=== PATIENT | male | born 1970 | race Caucasian/White ===

== ENCOUNTER 2017-11-16 22:26 | Emergency (ER) | payer OTHER ==
[~2017-11-16] VITALS: Ht 182.9 cm; Wt 104.3 kg
[~2017-11-16 22:26] MED LIST: CEPH500; CEPH500 PO; DOXY100 PO; EXEDRIN; HYDACE10B PO; HYDACE5 PO; Inderal40 MG; META800 PO; SIMV10 PO; THERAFLU
[2018-06-30] MEDS ORDERED: LISI5 PO (12:27)
[2018-06-30] MEDS ORDERED: ROSU10TA PO (12:28)
== END 2017-11-17 03:15 | disposition home or self-care (01) ==
LOC: ER 22:26
DX: C06.9 Malignant neoplasm of mouth, unspecified (principal); R51 Headache; C96.9 Malignant neoplasm of lymphoid, hematopoietic and related tissue, unspecified; Z87.891 Personal history of nicotine dependence
CPT/HCPCS: 96361; 96374; 96375; 99284; J1170; J2405; J7030

== ENCOUNTER 2017-12-06 00:19 | Day surgery (SDC) | payer OTHER, SELFPAY ==
[2017-12-06 10:36] LABS: BASOPHILS ABSOLUTE AUTO 0.03 K/mm3 (0.00-0.23); BASOPHILS PERCENT AUTO 0 % (0-2); EOSINOPHILS ABSOLUTE AUTO 0.02 K/mm3 (0.00-0.68); EOSINOPHILS PERCENT AUTO 0 % (0-6); Hematocrit 33.5 % (37.0-53.0); Hemoglobin 11.1 g/dL (13.5-17.5); IMMATURE GRAN ABSOLUTE AUTO 0.03 K/mm3 (0.00-0.10); IMMATURE GRAN PERCENT AUTO 0 % (0-1); LYMPHOCYTES ABSOLUTE AUTO 0.66 K/mm3 (0.84-5.20); LYMPHOCYTES PERCENT AUTO 7 % (21-46); MONOCYTES ABSOLUTE AUTO 0.89 K/mm3 (0.16-1.47); MONOCYTES PERCENT AUTO 9 % (4-13); Mean Corpuscular HGB 32.3 pg (26.0-34.0); Mean Corpuscular HGB Conc 33.1 g/dL (31.5-36.5); Mean Corpuscular Volume 97 fL (80-100); Mean Platelet Volume 9.5 fL (9.1-12.4); NEUTROPHILS ABSOLUTE AUTO 8.31 K/mm3 (1.96-9.15); NEUTROPHILS PERCENT AUTO 84 % (41-73); Platelet Count 311 K/mm3 (150-400); RDW Coefficient Variation 13.2 % (11.7-14.2); RDW Standard Deviation 44.7 fL (35.1-46.3); Red Blood Cell Count 3.44 M/mm3 (4.30-5.90); White Blood Cell Count 9.94 K/mm3 (4.00-11.30)
[2017-12-06 11:20] LABS: Alanine Aminotransfer (ALT/SGP 20 U/L (12-78); Albumin, Blood 3.3 g/dL (3.4-5.0); Albumin/Globulin Ratio 0.8 (0.8-1.8); Alk Phos 123 U/L (50-136); Anion Gap 6 mmol/L (6-16); Aspartate Aminotrans (AST/SGOT 15 U/L (12-37); Bilirubin, Total 0.2 mg/dL (0.1-1.0); Blood Urea Nitrogen 21 mg/dL (8-24); Bun/Creatinine Ratio 22.5 (12.0-20.0); CO2, Blood 28 mmol/L (21-32); Calcium, Blood 9.5 mg/dL (8.5-10.1); Chloride, Blood 106 mmol/L (98-108); Creatinine, Blood 0.93 mg/dL (0.60-1.20); Glomerular Filtration Rate >60 (60-); Glucose, Blood 88 mg/dL (70-99); Potassium, Blood 4.2 mmol/L (3.5-5.5); Sodium, Blood 140 mmol/L (136-145); Total Protein, Blood 7.3 g/dL (6.4-8.2)
== END 2017-12-06 10:50 | disposition home or self-care (01) ==
LOC: ATC 00:19
PROVIDERS: Internal Medicine Infectious Disease
DX: M27.2 Inflammatory conditions of jaws (principal); I10 Essential (primary) hypertension; Z87.891 Personal history of nicotine dependence
CPT/HCPCS: 36592; 80053; 85025

== ENCOUNTER 2017-12-10 10:07 | Emergency (ER) | payer OTHER, SELFPAY ==
[~2017-12-10] VITALS: Ht 185.4 cm; Wt 96.6 kg
[2017-12-10] MEDS ORDERED: Oxycodone HCl5 M1 (10:36)
[2017-12-10] MEDS ORDERED: ACET120S PR (10:36)
[2017-12-10] MEDS ORDERED: CEPH250A IV (10:36)
[2017-12-10] MEDS ORDERED: Rocephin 1g1 G/50 ML IV (10:38)
[2017-12-10 11:51] LABS: BASOPHILS ABSOLUTE AUTO 0.04 K/mm3 (0.00-0.23); BASOPHILS PERCENT AUTO 0 % (0-2); EOSINOPHILS ABSOLUTE AUTO 0.08 K/mm3 (0.00-0.68); EOSINOPHILS PERCENT AUTO 1 % (0-6); Hemoglobin 11.6 g/dL (13.5-17.5); IMMATURE GRAN ABSOLUTE AUTO 0.01 K/mm3 (0.00-0.10); IMMATURE GRAN PERCENT AUTO 0 % (0-1); LYMPHOCYTES ABSOLUTE AUTO 0.63 K/mm3 (0.84-5.20); LYMPHOCYTES PERCENT AUTO 7 % (21-46); MONOCYTES ABSOLUTE AUTO 0.85 K/mm3 (0.16-1.47); MONOCYTES PERCENT AUTO 9 % (4-13); Mean Corpuscular HGB Conc 33.1 g/dL (31.5-36.5); Mean Corpuscular Volume 97 fL (80-100); Mean Platelet Volume 9.5 fL (9.1-12.4); NEUTROPHILS ABSOLUTE AUTO 7.52 K/mm3 (1.96-9.15); NEUTROPHILS PERCENT AUTO 82 % (41-73); Platelet Count 284 K/mm3 (150-400); RDW Coefficient Variation 13.8 % (11.7-14.2); RDW Standard Deviation 47.1 fL (35.1-46.3); Red Blood Cell Count 3.62 M/mm3 (4.30-5.90); White Blood Cell Count 9.13 K/mm3 (4.00-11.30)
[2017-12-10 12:03] LABS: Anion Gap 7 mmol/L (6-16); Blood Urea Nitrogen 16 mg/dL (8-24); CO2, Blood 27 mmol/L (21-32); Calcium, Blood 9.3 mg/dL (8.5-10.1); Chloride, Blood 107 mmol/L (98-108); Creatinine, Blood 0.84 mg/dL (0.60-1.20); Glomerular Filtration Rate >60 (60-); Glucose, Blood 91 mg/dL (70-99); Potassium, Blood 3.9 mmol/L (3.5-5.5); Sodium, Blood 141 mmol/L (136-145)
== END 2017-12-10 13:48 | disposition home or self-care (01) ==
LOC: ER 10:07
PROVIDERS: Emergency Medicine
DX: G89.18 Other acute postprocedural pain (principal); Z79.899 Other long term (current) drug therapy; Z79.2 Long term (current) use of antibiotics
CPT/HCPCS: 70491; 80048; 85025; 96360; 99284; J7030; Q9967

== ENCOUNTER 2017-12-12 00:29 | Day surgery (SDC) | payer OTHER, SELFPAY ==
[~2017-12-12 00:29] MED LIST changes: +ACET120S PR; +CEPH250A IV; +Oxycodone HCl5 M1; +Rocephin 1g1 G/50 ML IV
[2017-12-12 11:23] LABS: BASOPHILS ABSOLUTE AUTO 0.03 K/mm3 (0.00-0.23); BASOPHILS PERCENT AUTO 0 % (0-2); Hematocrit 33.9 % (37.0-53.0); IMMATURE GRAN ABSOLUTE AUTO 0.02 K/mm3 (0.00-0.10); IMMATURE GRAN PERCENT AUTO 0 % (0-1); LYMPHOCYTES ABSOLUTE AUTO 0.59 K/mm3 (0.84-5.20); LYMPHOCYTES PERCENT AUTO 7 % (21-46); Mean Corpuscular Volume 97 fL (80-100); Red Blood Cell Count 3.51 M/mm3 (4.30-5.90)
[2017-12-12 11:30] LABS: EOSINOPHILS ABSOLUTE AUTO 0.19 K/mm3 (0.00-0.68); EOSINOPHILS PERCENT AUTO 2 % (0-6); Hemoglobin 11.3 g/dL (13.5-17.5); MONOCYTES ABSOLUTE AUTO 0.71 K/mm3 (0.16-1.47); MONOCYTES PERCENT AUTO 9 % (4-13); Mean Corpuscular HGB 32.2 pg (26.0-34.0); Mean Corpuscular HGB Conc 33.3 g/dL (31.5-36.5); Mean Platelet Volume 10.2 fL (9.1-12.4); NEUTROPHILS PERCENT AUTO 82 % (41-73); Platelet Count 231 K/mm3 (150-400); RDW Coefficient Variation 14.1 % (11.7-14.2); RDW Standard Deviation 48.7 fL (35.1-46.3); White Blood Cell Count 8.34 K/mm3 (4.00-11.30)
[2017-12-12 11:42] LABS: Alanine Aminotransfer (ALT/SGP 20 U/L (12-78); Albumin, Blood 3.3 g/dL (3.4-5.0); Albumin/Globulin Ratio 0.8 (0.8-1.8); Alk Phos 109 U/L (50-136); Anion Gap 9 mmol/L (6-16); Aspartate Aminotrans (AST/SGOT 19 U/L (12-37); Bilirubin, Total 0.2 mg/dL (0.1-1.0); Blood Urea Nitrogen 13 mg/dL (8-24); Bun/Creatinine Ratio 16.1 (12.0-20.0); CO2, Blood 26 mmol/L (21-32); Calcium, Blood 8.9 mg/dL (8.5-10.1); Chloride, Blood 106 mmol/L (98-108); Creatinine, Blood 0.81 mg/dL (0.60-1.20); Glomerular Filtration Rate >60 (60-); Glucose, Blood 104 mg/dL (70-99); Potassium, Blood 3.9 mmol/L (3.5-5.5); Sodium, Blood 141 mmol/L (136-145); Total Protein, Blood 7.3 g/dL (6.4-8.2)
== END 2017-12-12 11:00 | disposition home or self-care (01) ==
LOC: ATC 00:29
DX: M27.2 Inflammatory conditions of jaws (principal); Z85.810 Personal history of malignant neoplasm of tongue; I10 Essential (primary) hypertension
CPT/HCPCS: 36592; 80053; 85025

== ENCOUNTER 2017-12-17 00:24 | Day surgery (SDC) | payer OTHER, SELFPAY | END 2017-12-17 23:05 | disposition home or self-care (01) | LOC: WOUND 00:24 | DX: Z48.00 Encounter for change or removal of nonsurgical wound dressing (principal); C01 Malignant neoplasm of base of tongue; C77.0 Secondary and unspecified malignant neoplasm of lymph nodes of head, face and neck; R22.1 Localized swelling, mass and lump, neck; I10 Essential (primary) hypertension; G47.30 Sleep apnea, unspecified; Z87.891 Personal history of nicotine dependence | CPT/HCPCS: G0463 ==

== ENCOUNTER 2017-12-20 00:26 | Day surgery (SDC) | payer OTHER, SELFPAY ==
[2017-12-20 12:35] LABS: Hematocrit 33.9 % (37.0-53.0); Hemoglobin 11.3 g/dL (13.5-17.5); Mean Corpuscular HGB 33.1 pg (26.0-34.0); Mean Corpuscular HGB Conc 33.3 g/dL (31.5-36.5); Mean Corpuscular Volume 99 fL (80-100); Mean Platelet Volume 9.9 fL (9.1-12.4); Platelet Count 334 K/mm3 (150-400); RDW Coefficient Variation 15.2 % (11.7-14.2); Red Blood Cell Count 3.41 M/mm3 (4.30-5.90); White Blood Cell Count 7.21 K/mm3 (4.00-11.30)
[2017-12-20 13:15] LABS: BASOPHILS PERCENT MAN 0 % (0-2); EOSINOPHILS PERCENT MAN 0 % (0-6); LYMPHOCYTES ABSOLUTE MAN 0.21 K/mm3 (0.84-5.20); LYMPHOCYTES PERCENT MAN 3 % (21-46); MONOCYTES ABSOLUTE MAN 0.28 K/mm3 (0.16-1.47); MONOCYTES PERCENT MAN 4 % (4-13); SEG NEUTROPHILS PERCENT MAN 93 % (41-73); TOTAL CELLS COUNTED 100
[2017-12-20 13:27] LABS: Alanine Aminotransfer (ALT/SGP 21 U/L (12-78); Albumin, Blood 3.3 g/dL (3.4-5.0); Alk Phos 104 U/L (50-136); Anion Gap 6 mmol/L (6-16); Aspartate Aminotrans (AST/SGOT 11 U/L (12-37); Bilirubin, Total 0.1 mg/dL (0.1-1.0); Blood Urea Nitrogen 14 mg/dL (8-24); Bun/Creatinine Ratio 20.9 (12.0-20.0); CO2, Blood 31 mmol/L (21-32); Chloride, Blood 107 mmol/L (98-108); Creatinine, Blood 0.67 mg/dL (0.60-1.20); Globulin, Blood 3.4 g/dL (2.2-4.0); Glomerular Filtration Rate >60 (60-); Glucose, Blood 120 mg/dL (70-99); Potassium, Blood 3.8 mmol/L (3.5-5.5); Sodium, Blood 144 mmol/L (136-145); Total Protein, Blood 6.7 g/dL (6.4-8.2)
== END 2017-12-20 11:55 | disposition home or self-care (01) ==
LOC: ATC 00:26
PROVIDERS: Internal Medicine Infectious Disease
DX: M27.2 Inflammatory conditions of jaws (principal); I10 Essential (primary) hypertension; Z87.891 Personal history of nicotine dependence; Z85.810 Personal history of malignant neoplasm of tongue
CPT/HCPCS: 36592; 80053; 85025

== ENCOUNTER 2017-12-27 00:42 | Day surgery (SDC) | payer OTHER, SELFPAY ==
[2017-12-27] MEDS ORDERED: METR500 PO (11:43)
[2017-12-27] MEDS ORDERED: Periogard473 ML MM (11:44)
[2017-12-27 11:56] LABS: BASOPHILS ABSOLUTE AUTO 0.04 K/mm3 (0.00-0.23); BASOPHILS PERCENT AUTO 1 % (0-2); EOSINOPHILS ABSOLUTE AUTO 0.06 K/mm3 (0.00-0.68); EOSINOPHILS PERCENT AUTO 1 % (0-6); Hematocrit 38.9 % (37.0-53.0); IMMATURE GRAN ABSOLUTE AUTO 0.01 K/mm3 (0.00-0.10); IMMATURE GRAN PERCENT AUTO 0 % (0-1); LYMPHOCYTES ABSOLUTE AUTO 0.64 K/mm3 (0.84-5.20); LYMPHOCYTES PERCENT AUTO 12 % (21-46); MONOCYTES ABSOLUTE AUTO 0.59 K/mm3 (0.16-1.47); MONOCYTES PERCENT AUTO 11 % (4-13); Mean Corpuscular HGB 33.6 pg (26.0-34.0); Mean Corpuscular HGB Conc 33.4 g/dL (31.5-36.5); Mean Corpuscular Volume 101 fL (80-100); Mean Platelet Volume 9.7 fL (9.1-12.4); NEUTROPHILS ABSOLUTE AUTO 4.15 K/mm3 (1.96-9.15); NEUTROPHILS PERCENT AUTO 76 % (41-73); Platelet Count 372 K/mm3 (150-400); RDW Coefficient Variation 15.7 % (11.7-14.2); RDW Standard Deviation 58.4 fL (35.1-46.3); Red Blood Cell Count 3.87 M/mm3 (4.30-5.90); White Blood Cell Count 5.49 K/mm3 (4.00-11.30)
[2017-12-27 12:19] LABS: Alanine Aminotransfer (ALT/SGP 19 U/L (12-78); Albumin, Blood 3.6 g/dL (3.4-5.0); Albumin/Globulin Ratio 1.1 (0.8-1.8); Alk Phos 86 U/L (50-136); Anion Gap 7 mmol/L (6-16); Aspartate Aminotrans (AST/SGOT 14 U/L (12-37); Bilirubin, Total 0.2 mg/dL (0.1-1.0); Blood Urea Nitrogen 16 mg/dL (8-24); Bun/Creatinine Ratio 18.8 (12.0-20.0); CO2, Blood 28 mmol/L (21-32); Chloride, Blood 109 mmol/L (98-108); Creatinine, Blood 0.85 mg/dL (0.60-1.20); Globulin, Blood 3.2 g/dL (2.2-4.0); Glomerular Filtration Rate >60 (60-); Glucose, Blood 104 mg/dL (70-99); Potassium, Blood 4.3 mmol/L (3.5-5.5); Sodium, Blood 144 mmol/L (136-145); Total Protein, Blood 6.8 g/dL (6.4-8.2)
== END 2017-12-27 11:35 | disposition home or self-care (01) ==
LOC: ATC 00:42
PROVIDERS: Internal Medicine Infectious Disease
DX: M27.2 Inflammatory conditions of jaws (principal)
CPT/HCPCS: 36592; 80053; 85025

== ENCOUNTER 2018-01-02 00:26 | Day surgery (SDC) | payer OTHER, SELFPAY ==
[~2018-01-02 00:26] MED LIST changes: +METR500 PO; +Periogard473 ML MM
== END 2018-01-02 11:25 | disposition home or self-care (01) ==
LOC: ATC 00:26
DX: M27.2 Inflammatory conditions of jaws (principal); I10 Essential (primary) hypertension

== ENCOUNTER → 2018-08-31 | Outpatient (CLI) | payer OTHER ==
[~2018-08-31] MED LIST changes: +LISI5 PO; +ROSU10TA PO
== END | disposition home or self-care (01) ==
LOC: LAB 11:24 → LAB SHORT 11:24 → LAB FUT 08-29 10:25
DX: K51.90 Ulcerative colitis, unspecified, without complications (principal)
CPT/HCPCS: 83993

== ENCOUNTER 2019-06-05 11:26 | Observation (INO) | payer OTHER ==
[~2019-06-05] VITALS: Ht 177.8 cm; Wt 99.8 kg
[~2019-06-05 11:26] MED LIST changes: +Crestor20 MG PO; -LISI5 PO; +Prinivil10 MG PO; -ROSU10TA PO
[2019-06-05 12:32] LABS: BASOPHILS ABSOLUTE AUTO 0.08 K/mm3 (0.00-0.23); BASOPHILS PERCENT AUTO 1 % (0-2); EOSINOPHILS ABSOLUTE AUTO 0.21 K/mm3 (0.00-0.68); EOSINOPHILS PERCENT AUTO 2 % (0-6); Hemoglobin 14.1 g/dL (13.5-17.5); IMMATURE GRAN ABSOLUTE AUTO 0.14 K/mm3 (0.00-0.10); IMMATURE GRAN PERCENT AUTO 1 % (0-1); LYMPHOCYTES ABSOLUTE AUTO 1.25 K/mm3 (0.84-5.20); LYMPHOCYTES PERCENT AUTO 13 % (21-46); MONOCYTES ABSOLUTE AUTO 0.98 K/mm3 (0.16-1.47); MONOCYTES PERCENT AUTO 10 % (4-13); Mean Corpuscular HGB Conc 33.6 g/dL (31.5-36.5); Mean Corpuscular Volume 104 fL (80-100); Mean Platelet Volume 10.4 fL (9.1-12.4); NEUTROPHILS ABSOLUTE AUTO 7.37 K/mm3 (1.96-9.15); NEUTROPHILS PERCENT AUTO 73 % (41-73); Platelet Count 219 K/mm3 (150-400); RDW Coefficient Variation 12.3 % (11.7-14.2); RDW Standard Deviation 47.6 fL (35.1-46.3); Red Blood Cell Count 4.03 M/mm3 (4.30-5.90); White Blood Cell Count 10.03 K/mm3 (4.00-11.30)
[2019-06-05 12:53] LABS: Alanine Aminotransfer (ALT/SGP 68 U/L (12-78); Albumin, Blood 3.7 g/dL (3.4-5.0); Albumin/Globulin Ratio 1.1 (0.8-1.8); Alk Phos 125 U/L (50-136); Anion Gap 8 mmol/L (6-16); Aspartate Aminotrans (AST/SGOT 78 U/L (12-37); Bilirubin, Total 0.6 mg/dL (0.1-1.0); Blood Urea Nitrogen 20 mg/dL (8-24); CO2, Blood 25 mmol/L (21-32); Calcium, Blood 9.5 mg/dL (8.5-10.1); Chloride, Blood 104 mmol/L (98-108); Creatinine, Blood 1.05 mg/dL (0.60-1.20); Globulin, Blood 3.4 g/dL (2.2-4.0); Glomerular Filtration Rate >60 (60-); Glucose, Blood 118 mg/dL (70-99); Potassium, Blood 4.2 mmol/L (3.5-5.5); Sodium, Blood 137 mmol/L (136-145); Total Protein, Blood 7.1 g/dL (6.4-8.2)
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
--- NOTE | 2019-06-05 19:10 | NUR ---
po oxy given pt eating dinner called dr suleman herrmann his home meds and bowel care meds pt stated he started getting a leg cramp
--- NOTE | 2019-06-05 19:55 | NUR ---
Pt states he drinks half a case per day. Dr. James notified. Consult for hospitalist requested. [facility] notified by RN, will come to see patient.
[2019-06-06 04:13] LABS: Hematocrit 37.1 % (37.0-53.0); Hemoglobin 12.2 g/dL (13.5-17.5); Mean Corpuscular HGB 34.4 pg (26.0-34.0); Mean Corpuscular HGB Conc 32.9 g/dL (31.5-36.5); Mean Corpuscular Volume 105 fL (80-100); Mean Platelet Volume 10.2 fL (9.1-12.4); Platelet Count 169 K/mm3 (150-400); RDW Coefficient Variation 12.2 % (11.7-14.2); RDW Standard Deviation 47.8 fL (35.1-46.3); Red Blood Cell Count 3.55 M/mm3 (4.30-5.90); White Blood Cell Count 11.48 K/mm3 (4.00-11.30)
--- NOTE | 2019-06-06 05:07 | NUR ---
Patient A/Ox4. VSS. Ambulating in hallway with FWW. 5ml Drained from Hemovacc. Patient complaint of chest tightness. Dr cuevas notified and consulted hospitalist. EKG and labs ordered to trend troponin. CMS intact.
--- NOTE | 2019-06-06 16:04 | NUR ---
PT REPORTS DOPPLER WAS REQUIRED TO FIND PULSE ON RLE WHEN HE CAME TO THE ER. RLE REMAINS COOL AND PULSES WEAKER THAN LLE. DR. SIU NOTIFIED. WILL CONTINUE TO MONITOR AND MAINTAIN BEDREST UNTIL RECOMMENDATIONS COME FROM TRAUMA SURGEON.
--- NOTE | 2019-06-06 19:30 | NUR ---
SHIFT SUMMARY PAIN HAS BEEN MANAGED WITH PO AND IV PAIN MEDICATION THIS SHIFT. PT BECOMES VERY PAINFUL WITH MOVEMENT. PT TOLERATING PO WELL. CIWA SCORE REMAINS LOW. REPORT GIVEN TO TORI LE.
--- NOTE | 2019-06-07 05:05 | NUR ---
SHIFT SUMMARY PT RESTED WELL T/O NIGHT. AAOX4. NEGATIVE CIWA. DISCOMFORT CONTROLLED WITH 10MG ROXICODONE X2 THIS SHIFT + 1MG IV DILAUDID X1 FOR BREAKTHROUGH, NO NAUSEA/EMESIS. PT REPOSITIONS SELF IN BED, CONTINUE TO ENCOURAGE. X1 BAG IVF GIVEN PER ORDERS THIS SHIFT. GOOD PO INTAKE + OUTPUT. PT RESTING WELL AT THIS TIME, CALL LIGHT IN REACH.
--- NOTE | 2019-06-07 08:11 | NUR ---
DURING ASSESSMENT EDUCATED PATIENT ON USING SLING. PATIENT REFUSED TO WEAR SLING AT THIS TIME. STATES DISCOMFORT WHEN USING. WILL CONTINUE TO ENCOURAGE SLING USE PATIENT BECOMES MORE MOBILE
--- NOTE | 2019-06-07 15:18 | NUR ---
WHILE TRANSFERING PT TO BED FROM CHAIR, PT FELT A "POP" IN HIS LEFT INTERIOR HIP. REASSESSED PATIENT AND NO CHANGES FROM PREVIOUS NOTED. DR. SIU NOTIFIED, PLAN IS TO CONTINUE OBSERVING FOR ANY CHANGES. PT CURRENTLY RESTING IN BED. LEG IS ELEVATED AND PATIENT STATES NO PAIN WHEN NOT MOVING. ICE PACK GIVEN TO PATIENT FOR LEG.
--- NOTE | 2019-06-07 16:24 | NUR ---
SHIFT SUMMARY PATIENT ALERT AND ORIENTED DURING SHIFT, VSS. PATIENT UP TO CHAIR WITH 2 MOD ASSIST, CESAR-WALKER AND GAITBELT. VERY PAINFUL WITH STANDING ON TURNING. PT MEDICATED PER EMAR WITH ROXICODONE X2 AND DILAUDID X2 FOR BREAKTHROUGH PAIN. PATIENT TOLERATING WELL. NO BM AND BOWEL CARE STARTED. PLAN IS TO DISCHARGE TO SNF ONCE DISCHARGE ORDERS PLACED. PATIENT WEARING SLING.
[2019-06-08 04:57] LABS: BASOPHILS ABSOLUTE AUTO 0.02 K/mm3 (0.00-0.23); BASOPHILS PERCENT AUTO 0 % (0-2); EOSINOPHILS ABSOLUTE AUTO 0.11 K/mm3 (0.00-0.68); EOSINOPHILS PERCENT AUTO 1 % (0-6); Hemoglobin 10.4 g/dL (13.5-17.5); IMMATURE GRAN ABSOLUTE AUTO 0.05 K/mm3 (0.00-0.10); IMMATURE GRAN PERCENT AUTO 0 % (0-1); LYMPHOCYTES ABSOLUTE AUTO 0.75 K/mm3 (0.84-5.20); LYMPHOCYTES PERCENT AUTO 6 % (21-46); MONOCYTES ABSOLUTE AUTO 1.84 K/mm3 (0.16-1.47); MONOCYTES PERCENT AUTO 14 % (4-13); Mean Corpuscular HGB 34.6 pg (26.0-34.0); Mean Corpuscular HGB Conc 33.5 g/dL (31.5-36.5); Mean Corpuscular Volume 103 fL (80-100); Mean Platelet Volume 10.1 fL (9.1-12.4); NEUTROPHILS ABSOLUTE AUTO 10.85 K/mm3 (1.96-9.15); NEUTROPHILS PERCENT AUTO 80 % (41-73); Platelet Count 174 K/mm3 (150-400); RDW Coefficient Variation 11.9 % (11.7-14.2); RDW Standard Deviation 45.4 fL (35.1-46.3); Red Blood Cell Count 3.01 M/mm3 (4.30-5.90); White Blood Cell Count 13.62 K/mm3 (4.00-11.30)
--- NOTE | 2019-06-08 05:29 | NUR ---
SHIFT SUMMARY LYING IN SEMI FOWLERS WITH EYES CLOSED AND SO AT BEDSIDE IN CHAIR ASLEEP. REPOSITIONED FOR COMFORT PRN. PAIN MANAGED WITH PRN MEDS PER MD ORDERS. ABLE TO USE URINAL FOR VOIDING PRN. DENIES FURTHER NEEDS AT THIS TIME. SAFETY MEASURES IN PLACE. WILL GIVE HAND OFF TO ONCOMING SHIFT USING SBAR.
[2019-06-08 05:30] LABS: Alanine Aminotransfer (ALT/SGP 38 U/L (12-78); Albumin, Blood 2.7 g/dL (3.4-5.0); Albumin/Globulin Ratio 0.7 (0.8-1.8); Alk Phos 87 U/L (50-136); Anion Gap 6 mmol/L (6-16); Aspartate Aminotrans (AST/SGOT 45 U/L (12-37); Blood Urea Nitrogen 14 mg/dL (8-24); Bun/Creatinine Ratio 14.8 (12.0-20.0); CO2, Blood 29 mmol/L (21-32); Calcium, Blood 8.5 mg/dL (8.5-10.1); Chloride, Blood 97 mmol/L (98-108); Creatinine, Blood 0.95 mg/dL (0.60-1.20); Globulin, Blood 3.7 g/dL (2.2-4.0); Glomerular Filtration Rate >60 (60-); Glucose, Blood 102 mg/dL (70-99); Potassium, Blood 4.2 mmol/L (3.5-5.5); Sodium, Blood 132 mmol/L (136-145); Total Protein, Blood 6.4 g/dL (6.4-8.2)
--- NOTE | 2019-06-08 15:12 | NUR ---
DR GAVIRIA HERE RECENTLY TO SEE PT. DISCUSSED PAIN MGMT AND BOWEL CARE.
--- NOTE | 2019-06-08 18:29 | NUR ---
SHIFT SUMMARY PT EATING AND DRINKING. PT REPORTS DRINKING ENSURES. PT BEEN ASSISTED WITH ADL'S PRN. PT WAS UP TO BS WITH NO SUCCESS FOR BM. PT MED WITH BOWEL CARE. PT BEEN ENC TO HAVE BOWEL CARE EARLIER IN THE DAY, WHICH HE DID HAVE SOME BUT ALSO REFUSED SOME UNTIL LATER THIS AFTERNOON. PT USING CALL LIGHT APPR. PT BEEN MED FOR PAIN PRN. JUNI FIERRO'S TO SEE PT.
--- NOTE | 2019-06-08 19:58 | NUR ---
ASSUMED CARE ASSUMED CARE OF PT APPROX. 1900. PT A&OX4. PT VITAL SIGNS STABLE. ASSESSMENT COMPLETED. PT REPORTS PAIN TOLERABLE AT THIS TIME. SWELLING NOTED IN RIGHT ARM WHICH PATIENT REPORTS UNCHANGED. PT HAS BRUISING ON RIGHT HIP, AND GROIN/ LISSETH AREA. PT REPORTS THIS TO BE FROM FALL. PT ABDOMEN DISTENDED AND FIRM. PT REPORTS FLATULENCE. PT DENIES AND N/V. BED IN LOW POSITION, CALL LIGHT IN REACH AND PT DENIES ANY NEEDS. WILL CONTINUE TO MONITOR
--- NOTE | 2019-06-09 01:44 | NUR ---
ASSUMED CARE OF PT. MANAGER COMMERCIAL x2 ASSISTED PT TO BSC. PT WAS PAINFUL WITH MOVEMENT BUT SETTLES QUICKLY.
--- NOTE | 2019-06-09 02:05 | NUR ---
PT WAS ABLE TO HAVE MED SIZE HARD BM. ASSISTED BACK TO BED WITH 2 MAX ASSIST USING GAIT BELT AND CESAR WALKER. PT WAS PAINFUL BUT STATES THAT ITS GETTING EASIER EVERY TIME. REPOSITONED IN BED FOR COMFORT. MEDICATED FOR PAIN WITH 2 OXYCODONE, AND GAVE PRUNE JUICE PER REQUEST. CALL LIGHT IN REACH.
[2019-06-09 05:10] LABS: BASOPHILS ABSOLUTE AUTO 0.04 K/mm3 (0.00-0.23); BASOPHILS PERCENT AUTO 0 % (0-2); EOSINOPHILS ABSOLUTE AUTO 0.04 K/mm3 (0.00-0.68); EOSINOPHILS PERCENT AUTO 0 % (0-6); Hematocrit 29.8 % (37.0-53.0); Hemoglobin 9.9 g/dL (13.5-17.5); IMMATURE GRAN PERCENT AUTO 1 % (0-1); LYMPHOCYTES ABSOLUTE AUTO 0.68 K/mm3 (0.84-5.20); LYMPHOCYTES PERCENT AUTO 4 % (21-46); MONOCYTES ABSOLUTE AUTO 2.03 K/mm3 (0.16-1.47); MONOCYTES PERCENT AUTO 13 % (4-13); Mean Corpuscular HGB 34.3 pg (26.0-34.0); Mean Corpuscular HGB Conc 33.2 g/dL (31.5-36.5); Mean Corpuscular Volume 103 fL (80-100); Mean Platelet Volume 10.1 fL (9.1-12.4); NEUTROPHILS ABSOLUTE AUTO 12.62 K/mm3 (1.96-9.15); NEUTROPHILS PERCENT AUTO 81 % (41-73); Platelet Count 203 K/mm3 (150-400); RDW Standard Deviation 45.8 fL (35.1-46.3); Red Blood Cell Count 2.89 M/mm3 (4.30-5.90); White Blood Cell Count 15.51 K/mm3 (4.00-11.30)
--- NOTE | 2019-06-09 05:36 | NUR ---
PT STATES DOING BETTER, PAIN IS MANAGEABLE WITH PO NARCOTICS. DID HAVE MED SIZE BM. IS ABLE TO STAND FOLLOWING WB RESTRICTIONS, USING MOD ASSIST WITH GAIT BELT. PLAN FOR POSSIBLE DC TO SNF TODAY.
[2019-06-09 12:59] LABS: Bilirubin, Urine Neg (Neg); Blood, Urine Neg (Neg); Glucose Qualitative, Urine Neg (Neg); Ketones, Urine Neg (Neg); Leukocyte Esterase, Urine Neg (Neg); Nitrite, Urine Neg (Neg); Protein, Urine 1+ (Neg); Specific Gravity, Urine 1.015 (1.003-1.022); Urobilinogen, Urine NORM (Normal); pH, Urine 6.5 (5.0-8.0)
[2019-06-09 13:16] LABS: Appearance, Urine Clear (Clear); Color, Urine Yellow (P-Yellow)
== END 2019-06-09 13:55 ==
LOC: ER 11:26 → SURS 11:27
PROVIDERS: Emergency Medicine; Internal Medicine; ADMIT Surgery
DX: S52.124A Nondisplaced fracture of head of right radius, initial encounter for closed fracture (principal); S32.592A Other specified fracture of left pubis, initial encounter for closed fracture; S32.19XA Other fracture of sacrum, initial encounter for closed fracture; K59.00 Constipation, unspecified; E78.5 Hyperlipidemia, unspecified; F10.20 Alcohol dependence, uncomplicated; I10 Essential (primary) hypertension; Z79.899 Other long term (current) drug therapy; W13.2XXA Fall from, out of or through roof, initial encounter; Y90.9 Presence of alcohol in blood, level not specified
CPT/HCPCS: 36415; 71260; 73080; 73630; 74177; 80053; 83690; 85025; 85027; 96365; 96366; 96374-59; 96375; 96375-59; 96376; 97110; 97162; 97530; 99285-25; G0378; J1170; J2270; J2405; J3411; J3475; J7042; Q0163; Q9967

== ENCOUNTER 2020-08-28 14:13 | Observation (INO) | payer OTHER ==
[~2020-08-28] VITALS: Ht 182.9 cm; Wt 117.7 kg
[2020-08-28 14:58] LABS: BASOPHILS ABSOLUTE AUTO 0.08 K/mm3 (0.00-0.23); BASOPHILS PERCENT AUTO 1 % (0-2); EOSINOPHILS ABSOLUTE AUTO 0.03 K/mm3 (0.00-0.68); EOSINOPHILS PERCENT AUTO 0 % (0-6); Hemoglobin 19.8 g/dL (13.5-17.5); IMMATURE GRAN ABSOLUTE AUTO 0.06 K/mm3 (0.00-0.10); IMMATURE GRAN PERCENT AUTO 0 % (0-1); LYMPHOCYTES ABSOLUTE AUTO 1.11 K/mm3 (0.84-5.20); LYMPHOCYTES PERCENT AUTO 7 % (21-46); MONOCYTES PERCENT AUTO 8 % (4-13); Mean Corpuscular HGB 33.4 pg (26.0-34.0); Mean Corpuscular Volume 98 fL (80-100); NEUTROPHILS ABSOLUTE AUTO 13.52 K/mm3 (1.96-9.15); NEUTROPHILS PERCENT AUTO 84 % (41-73); Platelet Count 259 K/mm3 (150-400); RDW Coefficient Variation 12.2 % (11.7-14.2); RDW Standard Deviation 45.2 fL (35.1-46.3); Red Blood Cell Count 5.93 M/mm3 (4.30-5.90)
[2020-08-28 15:03] LABS: Hematocrit 58.3 % (37.0-53.0)
[2020-08-28 15:22] LABS: Alanine Aminotransfer (ALT/SGP 147 U/L (12-78); Albumin, Blood 4.2 g/dL (3.4-5.0); Alk Phos 187 U/L (50-136); Anion Gap 9 mmol/L (6-16); Aspartate Aminotrans (AST/SGOT 157 U/L (12-37); Bilirubin, Total 1.4 mg/dL (0.1-1.0); Blood Urea Nitrogen 16 mg/dL (8-24); Bun/Creatinine Ratio 12.4 (12.0-20.0); CO2, Blood 30 mmol/L (21-32); Calcium, Blood 11.1 mg/dL (8.5-10.1); Chloride, Blood 96 mmol/L (98-108); Creatinine, Blood 1.29 mg/dL (0.60-1.20); Globulin, Blood 4.4 g/dL (2.2-4.0); Glomerular Filtration Rate >60 (60-); Glucose, Blood 119 mg/dL (70-99); Potassium, Blood 3.3 mmol/L (3.5-5.5); Sodium, Blood 135 mmol/L (136-145); Total Protein, Blood 8.6 g/dL (6.4-8.2); Troponin I <0.015 ng/mL (0.000-0.040)
[2020-08-28 15:25] LABS: Source, Urine Clean Catch
[2020-08-28 15:30] LABS: Appearance, Urine Hazy (Clear); Bilirubin, Urine Neg (Neg); Blood, Urine 2+ (Neg); Color, Urine Yellow (P-Yellow); Glucose Qualitative, Urine Neg (Neg); Ketones, Urine Neg (Neg); Leukocyte Esterase, Urine 2+ (Neg); Nitrite, Urine Neg (Neg); Protein, Urine 3+ (Neg); Specific Gravity, Urine 1.015 (1.003-1.022); Urobilinogen, Urine NORM (Normal)
[2020-08-28 15:39] LABS: Amorphous Light (0-Heavy); Bacteria Few /hpf; Squamous Epithelial Cells Rare /hpf (Few)
[2020-08-28 18:44] LABS: U Amphetamine Screen Not Detected; U Barbituate Screen Not Detected; U Benzodiazapine Screen Not Detected; U Buprenorphine Screen Not Detected; U Cannabinoids Screen DETECTED; U Cocaine Screen Not Detected; U Methadone Screen Not Detected; U Methamphetamine Screen Not Detected; U Opiates Screen Not Detected; U Oxycodone Screen Not Detected; U Phencyclidine Screen Not Detected; U Propoxyphene Screen Not Detected
[2020-08-29 04:15] LABS: BASOPHILS ABSOLUTE AUTO 0.08 K/mm3 (0.00-0.23); BASOPHILS PERCENT AUTO 1 % (0-2); EOSINOPHILS ABSOLUTE AUTO 0.05 K/mm3 (0.00-0.68); EOSINOPHILS PERCENT AUTO 1 % (0-6); Hematocrit 50.4 % (37.0-53.0); Hemoglobin 16.6 g/dL (13.5-17.5); IMMATURE GRAN ABSOLUTE AUTO 0.04 K/mm3 (0.00-0.10); IMMATURE GRAN PERCENT AUTO 0 % (0-1); LYMPHOCYTES ABSOLUTE AUTO 1.32 K/mm3 (0.84-5.20); LYMPHOCYTES PERCENT AUTO 13 % (21-46); MONOCYTES ABSOLUTE AUTO 1.33 K/mm3 (0.16-1.47); MONOCYTES PERCENT AUTO 13 % (4-13); Mean Corpuscular HGB Conc 32.9 g/dL (31.5-36.5); Mean Corpuscular Volume 100 fL (80-100); Mean Platelet Volume 10.5 fL (9.1-12.4); NEUTROPHILS PERCENT AUTO 73 % (41-73); Platelet Count 188 K/mm3 (150-400); RDW Coefficient Variation 12.6 % (11.7-14.2); Red Blood Cell Count 5.03 M/mm3 (4.30-5.90); White Blood Cell Count 10.52 K/mm3 (4.00-11.30)
[2020-08-29 04:53] LABS: Alanine Aminotransfer (ALT/SGP 102 U/L (12-78); Albumin, Blood 3.2 g/dL (3.4-5.0); Alk Phos 133 U/L (50-136); Anion Gap 7 mmol/L (6-16); Aspartate Aminotrans (AST/SGOT 106 U/L (12-37); Bilirubin, Total 1.2 mg/dL (0.1-1.0); Blood Urea Nitrogen 15 mg/dL (8-24); Bun/Creatinine Ratio 12.4 (12.0-20.0); CO2, Blood 29 mmol/L (21-32); Calcium, Blood 9.4 mg/dL (8.5-10.1); Chloride, Blood 105 mmol/L (98-108); Creatinine, Blood 1.21 mg/dL (0.60-1.20); Globulin, Blood 3.3 g/dL (2.2-4.0); Glomerular Filtration Rate >60 (60-); Glucose, Blood 98 mg/dL (70-99); Potassium, Blood 3.7 mmol/L (3.5-5.5); Sodium, Blood 141 mmol/L (136-145)
[2020-08-29 04:55] LABS: Total Protein, Blood 6.5 g/dL (6.4-8.2)
--- NOTE | 2020-08-29 06:51 | NUR ---
ADMIT NOTE/SHIFT SUMMARY PATIENT ADMITTED EARLIER THIS SHIFT. PATIENT PLEASENT AND COOPERATIVE THROUGHOUT THE NIGHT. PATIENT CHEERFUL AND TALITIVE WITH STAFF. PATIENT CIWA'S CHARTED, PATIENT MEDICATED FOR CIWA SCORES PER EMAR. PATIENT APPEARED TO SLEEP WELL THROUGHOUT THE NIGHT. PATIENT INDEPENDENT IN ROOM AT THIS TIME. PATIENT CURRENTLY APPEARS TO BE ASLEEP. VITAL SIGNS CHARTED. WILL CONTINUE TO MONITOR PATIENT AND REPORT TO ONCOMING RN.
--- NOTE | 2020-08-29 11:15 | NUR ---
UPDATE; SPOKE WITH DR. WOO REGARDING BLOOD PRESSURE. SHE WILL ORDER PT'S NORMAL DAILY MEDS, OK TO START. MEDICATED WITH PRN HYDRALAZINE PER ORDERS FOR HYPERTENSION, WILL CONTINUE TO MONITOR.
--- NOTE | 2020-08-29 17:34 | NUR ---
SHIFT SUMMARY; A/A/OX4 THROUGHOUT SHIFT. INDEPENDANT IN ROOM. CIWA PROTOCOL. NO ETOH WITHDRAWL MEDS REQUIRED DURING SHIFT. MEDICATED FOR HYPERTENSION, NO ACUTE MEDICAL CHANGES DURING SHIFT. WILL CONTINUE TO MONITOR UNTIL CHANGE OF SHIFT.
[2020-08-30 04:34] LABS: Alanine Aminotransfer (ALT/SGP 93 U/L (12-78); Alk Phos 118 U/L (50-136); Anion Gap 4 mmol/L (6-16); Aspartate Aminotrans (AST/SGOT 100 U/L (12-37); Bilirubin, Total 1.1 mg/dL (0.1-1.0); Blood Urea Nitrogen 15 mg/dL (8-24); Bun/Creatinine Ratio 13.4 (12.0-20.0); CO2, Blood 30 mmol/L (21-32); Calcium, Blood 8.7 mg/dL (8.5-10.1); Chloride, Blood 106 mmol/L (98-108); Creatinine, Blood 1.12 mg/dL (0.60-1.20); Globulin, Blood 3.1 g/dL (2.2-4.0); Glomerular Filtration Rate >60 (60-); Glucose, Blood 89 mg/dL (70-99); Potassium, Blood 3.7 mmol/L (3.5-5.5); Sodium, Blood 140 mmol/L (136-145); Total Protein, Blood 6.1 g/dL (6.4-8.2)
--- NOTE | 2020-08-30 05:24 | NUR ---
SHIFT SUMMARY: PATIENT IS ALERT AND ORIENTED X 4. PLEASENT AND COOPERATIVE WITH CARE. SELPT MOST OF THE NIGHT WAKING FOR CARES. NO ACUTE CHANGES THIS SHIFT. RECIEVED IV ANTIBIOTICS. ON TELE - SINUS RHYTHM WITH HR IN THE 80'S. ON ROOM AIR. VITAL SIGNS STABLE WITH SLIGHTL ELEVATED BP THAT THE PATIENTS STATES IS HIS NORMAL. INDEPENDENT IN THE ROOM WALKING TO AND FROM BATHROOM. CIWA SCORES HAVE RANGED FROM 0-1 THIS SHIFT. PATIENT STATES HE IS "FEELING BETTER THAN NORMAL". RIGHT AC IV SALINE LOCKED AND FLUSHING WELL. BED REMAINED LOW, LOCKED AND CALL LIGHT IN REACH. WILL CONTINUE TO MONITOR.
[2020-08-30] MEDS ORDERED: ALBU90OI INH (10:48)
[2020-08-30] MEDS ORDERED: FOLI1 PO (11:05)
[2020-08-30] MEDS ORDERED: B-1100 M2 PO (11:06)
[2020-08-30] MEDS ORDERED: GUAI600T33 PO (11:06)
[2020-08-30] MEDS ORDERED: MIRALAX17 GM PO (11:07)
[2020-08-30] MEDS ORDERED: LISI20 PO (11:38)
--- NOTE | 2020-08-30 12:08 | NUR ---
DISCHARGE SUMMARY PT A&Ox4; ANXIOUS AT TIMES, COOPERATIVE WITH CARE. PT RESTING IN BED UP IND IN ROOM. PT DENIES PAIN, SOB, NAUSEA, LIGHTHEADEDNESS AND DIZZINESS. PT BP ELEVATED THIS AM; LISIOPRIL NEXT SCHEDULED DOSE 08/31/20 AT 0900; CLARIFIED ORDER WITH DR WOO; NEW ORDERS TO GIVEN THIS AM. BP TRENDING DOWN. OTHER VSS. NO OTHER ACUTE CHANGES NOTED DURING SHIFT. PT EDUCATED ON DISCHARGE INSTRUCTIONS, FOLLOW UP APPOINTMENT AND MEDICATINS. PRESCRIPTIONS SENT TO [facility] PER PT REQUEST. PT LEFT ROOM VIA WHEELCHAIR AT 1220; PT STABLE UPON DISCHARGE.
== END 2020-08-30 12:22 | disposition home or self-care (01) ==
LOC: ER 14:13 → PCU 14:14 → ER 21:25 → PCU 21:25
PROVIDERS: Family Medicine; Physician Assistant; ADMIT Family Medicine
DX: I10 Essential (primary) hypertension (principal); F10.139 Alcohol abuse with withdrawal, unspecified; R79.89 Other specified abnormal findings of blood chemistry; E87.6 Hypokalemia; E87.1 Hypo-osmolality and hyponatremia; E83.52 Hypercalcemia; N17.9 Acute kidney failure, unspecified; D72.828 Other elevated white blood cell count; E78.5 Hyperlipidemia, unspecified; D58.2 Other hemoglobinopathies; Z79.899 Other long term (current) drug therapy; Z87.891 Personal history of nicotine dependence; Z85.810 Personal history of malignant neoplasm of tongue; Y90.0 Blood alcohol level of less than 20 mg/100 ml
CPT/HCPCS: 36415; 71046; 76705; 80053; 81001; 83605; 83690; 83880; 84145; 84443; 84484; 85025; 87086; 93005; 93010; 96361; 96374; 96376; 99285-25; A9270; A9270-GY; G0480; J0360; J0696; J1650; J2060; J7030; J7050; Q2038

== ENCOUNTER 2021-11-29 14:18 | Emergency (ER) | payer OTHER ==
[~2021-11-29] VITALS: Ht 182.9 cm; Wt 113.4 kg
[~2021-11-29 14:18] MED LIST changes: +ALBU90OI INH; +B-1100 M2 PO; +FOLI1 PO; +GUAI600T33 PO; +LISI20 PO; +MIRALAX17 GM PO
[2021-11-29] MEDS ORDERED: AMLODIPINE BESYL5 MG PO (15:51)
[2021-11-29] MEDS ORDERED: ASPIR 8181 M1 PO (15:52)
[2021-11-29] MEDS ORDERED: HYDCHL25 PO (15:52)
[2021-11-29] MEDS ORDERED: TOPROL XL50 M1 PO (15:52)
== END 2021-11-29 17:13 | disposition home or self-care (01) ==
LOC: ER 14:18
DX: S61.511A Laceration without foreign body of right wrist, initial encounter (principal); I10 Essential (primary) hypertension; Z79.899 Other long term (current) drug therapy; Z87.891 Personal history of nicotine dependence; W45.8XXA Other foreign body or object entering through skin, initial encounter
CPT/HCPCS: 12001; 99282-25

== ENCOUNTER 2022-08-21 10:37 | Emergency (ER) | payer OTHER ==
[~2022-08-21] VITALS: Ht 182.9 cm; Wt 115.7 kg
[~2022-08-21 10:37] MED LIST changes: +AMLODIPINE BESYL5 MG PO; +ASPIR 8181 M1 PO; +HYDCHL25 PO; +TOPROL XL50 M1 PO
[2022-08-21] MEDS ORDERED: TRAZ50 PO (10:44)
== END 2022-08-21 10:45 | disposition home or self-care (01) ==
LOC: ER 10:37
DX: I10 Essential (primary) hypertension (principal); G47.00 Insomnia, unspecified; F17.200 Nicotine dependence, unspecified, uncomplicated; Z88.8 Allergy status to other drugs, medicaments and biological substances; Z79.899 Other long term (current) drug therapy; Z79.82 Long term (current) use of aspirin
CPT/HCPCS: 99283

== ENCOUNTER 2024-02-18 03:13 | Emergency (ER) | payer OTHER ==
[~2024-02-18] VITALS: Ht 182.9 cm; Wt 124.7 kg
[~2024-02-18 03:13] MED LIST changes: +TRAZ50 PO
[2024-02-18] MEDS ORDERED: ALBU90OI INH (03:33)
[2024-02-18] MEDS ORDERED: ZOLOFT25 MG PO (03:33)
[2024-02-18] MEDS ORDERED: NS 1,000 ML IV SCH ×2 (04:35→06:10)
[2024-02-18 04:57] LABS: BASOPHILS ABSOLUTE AUTO 0.05 K/mm3 (0.00-0.23); BASOPHILS PERCENT AUTO 1 % (0-2); EOSINOPHILS ABSOLUTE AUTO 0.09 K/mm3 (0.00-0.68); EOSINOPHILS PERCENT AUTO 1 % (0-6); Hematocrit 48.6 % (37.0-53.0); Hemoglobin 16.9 g/dL (13.5-17.5); IMMATURE GRAN ABSOLUTE AUTO 0.03 K/mm3 (0.00-0.10); IMMATURE GRAN PERCENT AUTO 0 % (0-1); LYMPHOCYTES ABSOLUTE AUTO 0.95 K/mm3 (0.84-5.20); LYMPHOCYTES PERCENT AUTO 9 % (21-46); MONOCYTES ABSOLUTE AUTO 1.06 K/mm3 (0.16-1.47); MONOCYTES PERCENT AUTO 10 % (4-13); Mean Corpuscular HGB 35.3 pg (26.0-34.0); Mean Corpuscular HGB Conc 34.8 g/dL (31.5-36.5); Mean Corpuscular Volume 102 fL (80-100); Mean Platelet Volume 10.7 fL (9.1-12.4); NEUTROPHILS ABSOLUTE AUTO 8.56 K/mm3 (1.96-9.15); NEUTROPHILS PERCENT AUTO 80 % (41-73); Platelet Count 181 K/mm3 (150-400); RDW Coefficient Variation 12.9 % (11.7-14.2); RDW Standard Deviation 48.4 fL (35.1-46.3); Red Blood Cell Count 4.79 M/mm3 (4.30-5.90); White Blood Cell Count 10.74 K/mm3 (4.00-11.30)
[2024-02-18 05:25] LABS: Albumin, Blood 3.1 g/dL (3.4-5.0); Albumin/Globulin Ratio 0.7 (0.8-1.8); Bilirubin, Total 1.5 mg/dL (0.1-1.0); Bun/Creatinine Ratio 11.6 (12.0-20.0); Calcium, Blood 9.6 mg/dL (8.5-10.1); Creatinine, Blood 0.86 mg/dL (0.60-1.20); Free Thyroxine 1.39 ng/dL (0.70-1.60); Globulin, Blood 4.5 g/dL (2.2-4.0); Magnesium, Blood 1.9 mg/dL (1.6-2.4); Potassium, Blood 3.1 mmol/L (3.5-5.5); Total Protein, Blood 7.6 g/dL (6.4-8.2); Triiodothyronine, Free 2.44 pg/mL (2.18-3.98)
[2024-02-18] MEDS ORDERED: Methocarbamol 500 MG Tab PO ONE (05:25)
[2024-02-18] MEDS ORDERED: Ketorolac Tromethamine 30mg Vial IV ONE (05:25)
[2024-02-18] MEDS ORDERED: Ipratropium/Albuterol SulF 2.5-0.5MG/3 ML Amp INH ONE (05:25)
[2024-02-18] MEDS ORDERED: Potassium Chloride 20 MEQ/15 ML UDC PO ONE (06:05)
[2024-02-18] MEDS ORDERED: PredniSONE 20 MG Tab PO ONE (06:10)
[2024-02-18] MEDS ORDERED: Azithromycin 250 MG Tab PO ONE (06:10)
[2024-02-18] MEDS ORDERED: Morphine Sulfate 4 MG/1 ML Injection IV ONE (06:10)
[2024-02-18] MEDS ORDERED: Albuterol 2.5 MG/3 ML VIAL INH SCH (06:10)
[2024-02-18 06:44] LABS: Influenza A, PCR NEGATIVE (NEGATIVE); Influenza B, PCR NEGATIVE (NEGATIVE); Resp Syncytial Virus, PCR NEGATIVE (NEGATIVE); SARS-Cov-2 (COVID-19) PCR, MMC NEGATIVE (NEGATIVE)
[2024-02-18] MEDS ORDERED: AZIT250 PO (07:05)
[2024-02-18] MEDS ORDERED: PRED20 PO (07:05)
[2024-02-18 07:56] VITALS: BP 132/87
== END 2024-02-18 07:55 | disposition home or self-care (01) ==
LOC: ER 03:13
PROVIDERS: Student in an Organized Health Care Education/Training Program
DX: J44.1 Chronic obstructive pulmonary disease with (acute) exacerbation (principal); R07.89 Other chest pain; E87.6 Hypokalemia; I10 Essential (primary) hypertension; Z87.891 Personal history of nicotine dependence; Z79.899 Other long term (current) drug therapy; Z79.82 Long term (current) use of aspirin; Z88.8 Allergy status to other drugs, medicaments and biological substances
CPT/HCPCS: 0241U; 71046; 80053; 83735; 84439; 84481; 85025; 94640; 94644; 94664; 96374; 96375; 99284-25; A9270; J1885; J2270; J7030; J7512

== ENCOUNTER 2024-12-15 09:01 | Day surgery (SDC) | payer OTHER ==
[~2024-12-15] VITALS: Ht 182.9 cm; Wt 129.9 kg
[~2024-12-15 09:01] MED LIST changes: +AZIT250 PO; +Lactated Ringer's 1,000 ML IV ONE; +PRED20 PO; +ZOLOFT25 MG PO
[2024-12-15] MEDS ORDERED: SPIR25 (09:49)
[2024-12-15] MEDS ORDERED: GENICIN500 M1 (09:49)
[2024-12-15] MEDS ORDERED: FUROSEMIDE40 MG (09:49)
[2024-12-15] MEDS ORDERED: EUTHYROX75 MC1 (09:49)
[2024-12-15] MEDS ORDERED: FURO40 (09:50)
[2024-12-15] MEDS ORDERED: 1/2 NS 250ml250 ML (09:50)
[2024-12-15] MEDS ORDERED: MULVITA (09:50)
[2024-12-15] MEDS ORDERED: FISH OIL 1,0001 EA10 (09:50)
[2024-12-15] MEDS ORDERED: METF500 (09:50)
[2024-12-15] MEDS ORDERED: BEET ROOT500 MG (09:51)
[2024-12-15] MEDS ORDERED: TOCO1000 (09:51)
[2024-12-15] MEDS ORDERED: TURMERIC500 M2 (09:51)
[2024-12-15] MEDS ORDERED: Lidocaine HCl 4% 5 ML SDA ONE (10:12)
[2024-12-15] MEDS ORDERED: propofoL 50 ML IV ONE (10:16)
[2024-12-15] MEDS ORDERED: Lactated Ringer's 1,000 ML IV ONE (10:20)
[2024-12-15] MEDS ORDERED: Midazolam HCl 1MG / ML 2ML Vial ONE (10:26)
[2024-12-15 11:11] VITALS: BP 118/741
== END 2024-12-15 11:11 | disposition home or self-care (01) ==
LOC: ORSCSDS 09:01
PROVIDERS: Specialist
PROC: 0DJ08ZZ Inspection of Upper Intestinal Tract, Via Natural or Artificial Opening Endoscopic (ICD-10-PCS; principal; 2024-12-15 10:30)
DX: K70.31 Alcoholic cirrhosis of liver with ascites (principal); I48.20 Chronic atrial fibrillation, unspecified; J44.9 Chronic obstructive pulmonary disease, unspecified; K21.9 Gastro-esophageal reflux disease without esophagitis; E11.9 Type 2 diabetes mellitus without complications; I10 Essential (primary) hypertension; G47.33 Obstructive sleep apnea (adult) (pediatric); R56.9 Unspecified convulsions; K44.9 Diaphragmatic hernia without obstruction or gangrene; K76.6 Portal hypertension; K31.89 Other diseases of stomach and duodenum; E78.00 Pure hypercholesterolemia, unspecified; E66.01 Morbid (severe) obesity due to excess calories; Z68.38 Body mass index [BMI] 38.0-38.9, adult; Z79.82 Long term (current) use of aspirin; Z79.84 Long term (current) use of oral hypoglycemic drugs; Z79.899 Other long term (current) drug therapy
CPT/HCPCS: 82947; J2003; J2250; J2704; J7120

== ENCOUNTER 2025-03-17 07:19 | Day surgery (SDC) | payer OTHER ==
[2025-03-17] VITALS (11 sets, daily range): BP systolic 132–189; BP diastolic 73–103
[~2025-03-17] VITALS: Ht 182.9 cm; Wt 125.6 kg
[~2025-03-17 07:19] MED LIST changes: +1/2 NS 250ml250 ML; +ACET500 PO; +ALDACTONE100 MG PO; +BEET ROOT500 MG; +CeFAZolin Sodium 3,000 MG in NS 100 ML IV SCH; +Desyrel150 MG PO; +EUTHYROX75 MC1 PO; +FISH OIL 1,0001 EA10; +FURO40 PO; +FUROSEMIDE40 MG; +GENICIN500 M1; -Lactated Ringer's 1,000 ML IV ONE; +METF500 PO; +METO25ER PO; +MULVITA; +TOCO1000; -TOPROL XL50 M1 PO; +TURMERIC500 M2
[2025-03-17] MEDS ORDERED: STEROID INHALER (07:55)
[2025-03-17] MEDS ORDERED: Ondansetron HCl 2 MG / ML 2ML Vial ONE (08:08)
[2025-03-17] MEDS ORDERED: Dexamethasone Sod Phos 10 MG/ML 1ML VIAL ONE (08:08)
[2025-03-17] MEDS ORDERED: Ketorolac Tromethamine 30mg Vial ONE (08:08)
[2025-03-17] MEDS ORDERED: Rocuronium Bromide 10 MG/ML 5ML Injection IV ONE (08:08)
[2025-03-17] MEDS ORDERED: FentaNYL Citrate 50 MCG/ML 5 ML Injection ONE (08:08)
--- NOTE | 2025-03-17 08:18 | NUR ---
Ambulatory in Day SurgeryPre-Op teaching done. Pt verbalizes understanding. History, Chart, Medications and Allergies reviewed before start of procedure.Patient confirms NPO status and agrees with scheduled surgery. Patient States Post-Procedure ride home has been arranged. Patient reports completing Chlorhexadine shower X2 prior to admission to hospital.
[2025-03-17] MEDS ORDERED: Bupivacaine 0.5% HCl 5 MG/ML 30MLVIAL ONE (08:23)
[2025-03-17] MEDS ORDERED: HYDROmorphone HCl/Pf 1MG SYR IV PRN ×2 (09:00→09:05)
[2025-03-17] MEDS ORDERED: Metoclopramide HCl 5MG / ML 2ML Vial IV PRN (09:05)
[2025-03-17] MEDS ORDERED: Labetalol HCL 5 MG/ML 4ML Injection (Single Dose) IV PRN (09:05)
[2025-03-17] MEDS ORDERED: FentaNYL Citrate 50 MCG/ML 2 ML Injection IV PRN ×2 (09:05→09:10)
[2025-03-17] MEDS ORDERED: Albuterol 2.5 MG/3 ML VIAL INH PRN (09:05)
[2025-03-17] MEDS ORDERED: Ipratropium/Albuterol SulF 2.5-0.5MG/3 ML Amp ONE (10:47)
[2025-03-17] MEDS ORDERED: Labetalol HCL 5 MG/ML 4ML Injection (Single Dose) ONE (10:47)
--- NOTE | 2025-03-17 12:19 | NUR ---
Patient States Post-Procedure ride home has been arranged. Discharged via wheelchair to private car for ride home. Discharge instructions reviewed with patient. Patient verbalizes understanding. Copy given to patient to take home.
== END 2025-03-17 12:20 | disposition home or self-care (01) ==
LOC: ORSCMMR 07:19 → ORD 07:30 → ORSCMMR 07:30
PROVIDERS: Surgery
PROC: 0WUF0JZ Supplement Abdominal Wall with Synthetic Substitute, Open Approach (ICD-10-PCS; principal; 2025-03-17 08:30)
DX: K42.0 Umbilical hernia with obstruction, without gangrene (principal); E78.5 Hyperlipidemia, unspecified; I48.91 Unspecified atrial fibrillation; K70.30 Alcoholic cirrhosis of liver without ascites; J44.9 Chronic obstructive pulmonary disease, unspecified; I10 Essential (primary) hypertension; Z79.899 Other long term (current) drug therapy; E11.9 Type 2 diabetes mellitus without complications; E03.9 Hypothyroidism, unspecified; E66.9 Obesity, unspecified; Z68.37 Body mass index [BMI] 37.0-37.9, adult
CPT/HCPCS: 82947; C1781; J0690; J1100; J1885; J2405; J2704; J3010; J7120